=== PATIENT | male | born 1975 | race Caucasian/White ===

== ENCOUNTER → 2025-10-26 09:55 | Outpatient (BNVA) | payer BC, SELFPAY | PROVIDERS: Visit Provider Nurse Practitioner Family | DX: M25.361 Other instability, right knee (principal); R29.898 Other symptoms and signs involving the musculoskeletal system; M25.561 Pain in right knee; G89.29 Other chronic pain; M25.469 Effusion, unspecified knee | CPT/HCPCS: 73562 ==